=== PATIENT | female | born 1985 | race Two or more races ===

== ENCOUNTER 2023-08-13 17:20 | Emergency (ER) | payer MEDICARE, MEDICAID ==
[~2023-08-13] VITALS: Ht 154.9 cm; Wt 110.5 kg
[2023-08-13 17:57] VITALS: BP 153/93; TEMP 98.7
[2023-08-13] MEDS ORDERED: IBUPROFEN 800 MG TAB PO ONE (19:30)
[2023-08-13 20:33] LABS: Eosinophils # (auto) 0.1 10 ^3/uL (0-0.8); Eosinophils % (auto) 1.4 % (0.0-7.0); Mean Corpuscular Hemoglobin 23.1 pg (28.0-32.0)
[2023-08-13 20:34] LABS: Basophils # (auto) 0.1 10 ^3/uL (0-0.2); Basophils % (auto) 0.7 % (0.0-2.0); Hematocrit 35.1 % (36.0-46.0); Lymphocytes # (auto) 2.8 10 ^3/uL (0.4-5.4); Lymphocytes % (auto) 33.4 % (10.0-50.0); Mean Corpuscular Hgb Conc. 31.3 g/dL (32.0-36.0); Mean Corpuscular Volume 73.9 fL (80.0-100.0); Monocytes # (auto) 0.6 10 ^3/uL (0-1.3); Monocytes % (auto) 7.3 % (0.0-12.0); Neutrophils # (auto) 4.8 10 ^3/uL (1.6-8.6); Neutrophils % (auto) 57.2 % (37.0-80.0); Nucleated Red Blood Cells % 0.1 %; Red Blood Cells 4.75 10^6/uL (4.0-5.20); Red Cell Distribution Width 19.1 % (11.8-14.3); White Blood Cell 8.4 10^3/uL (4.4-10.8)
[2023-08-13 20:49] LABS: Uric Acid 5.6 mg/dL (3.1-7.8)
[2023-08-13 20:54] LABS: CRP High Sensitivity 1.92 mg/dL (<1.0)
[2023-08-13 20:56] LABS: Anion Gap 7 (5-15); BUN/Creatinine Ratio 12.7 (10.0-20.0); Blood Urea Nitrogen 10 mg/dL (9-23); Calcium 9.6 mg/dL (8.5-10.1); Carbon Dioxide 27 mmol/L (20-30); Chloride 103 mmol/L (98-107); Glucose 95 mg/dL (74-106); Potassium 3.9 mmol/L (3.5-5.1); Sodium 137 mmol/L (136-145)
[2023-08-13 21:00] VITALS: PULSE 90; RESP 20; O2SAT 97
[2023-08-13 21:01] LABS: Erythrocyte Sedimentation Rate 30 mm/hr (0-20)
[2023-08-13] MEDS ORDERED: DICL1GEL73 TD (21:14)
[2023-08-13] MEDS ORDERED: IBUP-1456 PO (21:14)
== END 2023-08-13 21:18 | disposition home or self-care (01) ==
LOC: ER 17:20
DX: M25.462 Effusion, left knee (principal)
CPT/HCPCS: 36415; 73562; 80048; 84550; 85025; 85652; 86141

== ENCOUNTER 2024-03-25 16:58 | Emergency (ER) | payer MEDICARE, MEDICAID ==
[~2024-03-25] VITALS: Ht 154.9 cm; Wt 111.2 kg
[~2024-03-25 16:58] MED LIST: DICL1GEL73 TD; IBUP-1456 PO
[2024-03-25 18:48] LABS: Urine Bacteria FEW /hpf (None Seen); Urine Blood Negative /uL (Negative); Urine Clarity Turbid (Clear); Urine Color Yellow (Yellow); Urine Mucus FEW (None Seen); Urine Protein, UAD 1+ (Negative); Urine Specific Gravity 1.031 (1.001-1.035); Urine Urobilinogen Normal (Negative); Urine WBC 3 /hpf (0 - 5)
[2024-03-25] MEDS ORDERED: IBUP-1455 PO (20:49)
[2024-03-25 21:30] VITALS: BP 147/80; PULSE 92; RESP 18; TEMP 98.2; O2SAT 95
== END 2024-03-25 21:33 | disposition home or self-care (01) ==
LOC: ER 17:00
DX: R10.31 Right lower quadrant pain (principal); R16.0 Hepatomegaly, not elsewhere classified
CPT/HCPCS: 74176; 81001

== ENCOUNTER 2024-05-10 15:50 | Emergency (ER) | payer MEDICARE, MEDICAID ==
[~2024-05-10] VITALS: Ht 154.9 cm; Wt 110.0 kg
[~2024-05-10 15:50] MED LIST changes: +IBUP-1455 PO
[2024-05-10 16:19] LABS: Basophils # (auto) 0.1 10 ^3/uL (0-0.2); Eosinophils # (auto) 0.1 10 ^3/uL (0-0.8); Eosinophils % (auto) 0.8 % (0.0-7.0); Hemoglobin 10.5 g/dL (12.2-16.2); Monocytes # (auto) 0.6 10 ^3/uL (0-1.3)
[2024-05-10 16:20] LABS: Basophils % (auto) 1.2 % (0.0-2.0); Hematocrit 33.6 % (36.0-46.0); Lymphocytes # (auto) 2.5 10 ^3/uL (0.4-5.4); Lymphocytes % (auto) 34.5 % (10.0-50.0); Mean Corpuscular Hemoglobin 22.7 pg (28.0-32.0); Mean Corpuscular Hgb Conc. 31.4 g/dL (32.0-36.0); Mean Corpuscular Volume 72.4 fL (80.0-100.0); Monocytes % (auto) 8.2 % (0.0-12.0); Neutrophils % (auto) 55.3 % (37.0-80.0); Red Blood Cells 4.64 10^6/uL (4.0-5.20); Red Cell Distribution Width 19.3 % (11.8-14.3); White Blood Cell 7.2 10^3/uL (4.4-10.8)
[2024-05-10 16:43] LABS: Alkaline Phosphatase 79 U/L (46-116); Anion Gap 9 (5-15); Aspartate Aminotransferase < 8 U/L (13-40); BUN/Creatinine Ratio 10.9 (10.0-20.0); Blood Urea Nitrogen 10 mg/dL (9-23); Calcium 9.2 mg/dL (8.7-10.4); Carbon Dioxide 24 mmol/L (20-30); Chloride 108 mmol/L (98-107); Glucose 92 mg/dL (74-106); Potassium 3.9 mmol/L (3.5-5.1); Sodium 141 mmol/L (136-145)
[2024-05-10 16:44] LABS: Albumin 4.1 g/dL (3.2-4.8); Bilirubin, Total 0.2 mg/dL (0.2-1.0)
[2024-05-10 17:01] LABS: Alanine Aminotransferase < 9 U/L (7-40)
[2024-05-10 17:35] VITALS: BP 121/85; TEMP 98.7
[2024-05-10 17:37] VITALS: PULSE 69; RESP 22; O2SAT 97
[2024-05-10] MEDS ORDERED: AUG875T PO (18:33)
[2024-05-10] MEDS ORDERED: PRED20TA2 PO (18:33)
== END 2024-05-10 18:48 | disposition home or self-care (01) ==
LOC: ER 15:50
DX: J18.9 Pneumonia, unspecified organism (principal)
CPT/HCPCS: 36415; 71045; 80053; 84484; 85025; 93005

== ENCOUNTER 2024-10-29 17:36 | Emergency (ER) | payer MEDICARE, MEDICAID ==
[~2024-10-29] VITALS: Ht 154.9 cm; Wt 114.8 kg
[~2024-10-29 17:36] MED LIST changes: +AUG875T PO; +PRED20TA2 PO
--- NOTE | 2024-10-29 19:02 | ED.PDOC ---
HPI Comments Patient presents to the ED with a left thumb laceration. 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 The patient states that she applied a band aid to the wound, and bleeding appears controlled at this time.Denies numbness and weakness. Chief Complaint: Laceration Time Seen by MD: 18:35 Primary Care Provider: NONE Reviewed Notes: Nurses Notes, Medications, Allergies Allergies: Coded Allergies: NO KNOWN ALLERGIES (Unverified , 08/13/23) Home Meds Active Scripts Ibuprofen (Ibuprofen) 800 Mg Tab, 1 TAB PO TID PRN for 5 Days, #15 TAB Prov:LATASHA GUZMAN [employer] ADMIN[employer] 10/29/24 Prednisone (Prednisone) 20 Mg Tab, 20 MG PO DAILY for 5 Days, #5 MG Prov:LÓPEZ LEDBETTER [employer] ADMIN[employer] 05/10/24 Amoxicillin & Pot Clavulanate (AUGMENTIN TABLET) 875 Mg Tb, 875 MG PO BID for 7 Days, #14 TAB Prov:LÓPEZ LEDBETTER [facility] 05/10/24 Ibuprofen Micronized (Ibuprofen) 800 Mg Tab, 800 MG PO Q8HP PRN, #20 TAB Prov:GABI MADERA PAC 03/25/24 Ibuprofen (Ibuprofen) 800 Mg Tab, 1 TAB PO TID PRN for 30 Days, #90 TAB 1 Refill Prov:GUILLE SARAH [facility] 08/13/23 Diclofenac Sodium (Topical) (Diclofenac Sodium) 1 % Gel, 1 % TD QID PRN for 30 Days, #1 GEL Prov:GUILLE SARAH [facility] 08/13/23 Information Source: Patient Mode of Arrival: Ambulatory Complexity: Simple Laceration Length (cm): 1 Past Medical History PAST MEDICAL HISTORY: Gallstones 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 Family History Family History: Reviewed,noncontributory to illness, No family hx of Cancer, No family hx of DM, No family hx of Heart nohemi, No family hx of HTN, No family hx ofKidney nohemi, No family hx of Liver nohemi, No family hx of Lung nohemi, No family hx of Stroke Social History Smoker: Non-Smoker Alcohol: Denies ETOH Use Drugs: Denies Drug Use Lives In: Home Constitutional: denies: chills, diaphoresis, fatigue, fever, malaise, sweats, weakness, others EENTM: denies: blurred vision, double vision, ear bleeding, ear discharge, ear drainage, ear pain, ear ringing, eye pain, eye redness, hearing loss, mouth pain, mouth swelling, nasal discharge, nose bleeding, nose congestion, nose pain, photophobia, tearing, throat pain, throat swelling, voice changes, others Respiratory: denies: cough, hemoptysis, orthopnea, SOB at rest, shortness of breath, SOB with excertion, stridor, wheezing, others Cardiovascular: denies: chest pain, dizzy spells, diaphoresis, Dyspnea on exertion, edema, irregular heart beat, left arm pain, lightheadedness, palpitations, PND, syncope, others Gastrointestinal: denies: abdomen distended, abdominal pain, blood streaked bowels, constipated, diarrhea, dysphagia, difficulty swallowing, hematemesis, melena, nausea, poor appetite, poor fluid intake, rectal bleeding, rectal pain, vomiting, others Genitourinary: denies: abnormal vagina bleeding, burning, dyspareunia, dysuria, flank pain, frequency, hematuria, incontinence, pain, , vagina discharge, urgency, others Neurological: denies: dizziness, fainting, headache, left sided numbness, left sided weakness, numbness, paresthesia, pre-existing deficit, right sided numbne ss, right sided weakness, seizure, speech problems, tingling, tremors, weakness, others Musculoskeletal: denies: back pain, gout, joint pain, joint swelling, muscle pain, muscle stiffness, neck pain, others Integumetry: reports: laceration (left thumb); denies: bruises, change in color, change in hair/nails, dryness, lesions, lumps, rash, wounds, others Allergic/Immunocompromised: denies: Difficulty Healing, Frequent Infections, Hives, Itching, others Hematologic/Lymphatic: denies: anemia, blood clots, easy bleeding, easy bru ising, swollen glands, others Endocrine: denies: excessive hunger, excessive sweating, excessive thirst, e xcessive urination, flushing, intolerance to cold, intolerance to heat, unexplained weight gain, unexplained weight loss, others Psychiatric: denies: anxiety, bipolar disorder, depression, hopeless, panic disorder, schizophrenia, sleepless, suicidal, others Physical Exam General Appearance: No Apparent Distress, Normal HEENT: Pharynx Normal Neck: Full Range of Motion, Non-Tender Respiratory: Lungs Clear, No Respiratory Distress, Normal Breath Sounds Cardiovascular: No Murmur, Normal Peripheral Pulses, Regular Rate/Rhythm Breast Exam: Deferred Gastrointestinal: Non Tender, Soft Genitalia: Deferred Pelvic: Deferred Rectal: Deferred Extremities: Normal capillary refill, Normal inspection, Normal range of motion, Non-tender, No pedal edema Musculoskeletal : Apperance: Normal Neurologic: Alert, noc engineer II-XII nml as Tested, No Motor Deficits, Normal Affect, Normal Mood, No Sensory Deficits Cerebellar Function: Normal Reflexes: Normal Skin: Dry, Lacerations (Superficial laceration to left thumb, bleeding control led, csm intact ), Normal Color, Warm Lymphatic: No Adenopathy Was a procedure done? Was a procedure done?: Yes Sedation Sedation?: No Laceration Repair : Location Left Thumb Length 1.5 cm Anesthetic: Nothing Laceration Repair Prep: Saline, Betadine Laceration Repair Wound Comple: subcut tissue repair Laceration Repair: Dermabond Informed consent obtained: Yes Risks, benefits, and alternati: Yes Notes Patient tolerated well with no blood loss Differential diagnosis Generic Laceration: Fracture, Retained Foriegn Body, Neurovascular Injury, Tendon Injury, Laceration, Avulsion, Amputation X-Ray, Labs, Meds, VS Vital Signs Date Time Temp Pulse Resp B/P (MAP) Pulse Ox O2 Delivery O2 Flow Rate FiO2 10/29/24 19:41 73 19 98 Room Air 10/29/24 19:41 98.6 73 19 140/82 (101) 98 98.6 10/29/24 17:58 98.9 84 16 163/54 (90) 97 Current Medications Medications (Trade) Dose Ordered Sig/Jenna Route Start Time Stop Time Status Last Admin Acetaminophen/ Hydrocodone Bitart ([place] 5/325MG Tab) 1 tab ONCE ONCE PO 10/29/24 20:30 10/29/24 20:31 DC 10/29/24 20:31 X-Ray, Labs, Meds, VS Comment Laceration superficial closed with Dermabond and Steri-Strips. Dermabond aftercare discussed. Advised patient to follow up with her PCP as needed. Motrin 800 sent for pain and swelling. ER return precautions given patient agrees with discharge plan of care. Time of 1ST Reevaluation: 20:29 Reevaluation 1ST: Improved Patient Education/Counseling: Diagnosis, Treatment, Prognosis, Need For Follow Up Family Education/Counseling: No Family Present Departure 1 Departure Time of Disposition: 20:29 Impression: Primary Impression: Laceration of thumb without foreign body without damage to nail Qualified Codes: S61.012A - Laceration without foreign body of left thumb without damage to nail, initial encounter Disposition: HOME / SELF CARE / HOMELESS Condition: Stable e-Prescriptions Ibuprofen (Ibuprofen) 800 Mg Tab 1 TAB PO TID PRN for 5 Days, #15 TAB Prov: LATASHA GUZMAN 10/29/24 Discharged With: Self Critical Care Note Critical Care Time?: No Stability Stability form required: LATASHA Hernandez Oct 29, 2024 19:02
[2024-10-29] MEDS ORDERED: LIDOCAINE 1% HCL (LOCAL ANESTH.) INJ 20ML MDV ID ONE (19:15)
[2024-10-29 19:41] VITALS: BP 140/82; PULSE 73; RESP 19; TEMP 98.6; O2SAT 98
[2024-10-29] MEDS ORDERED: IBUP-1456 PO (20:31)
[2024-10-29] MEDS: HYDROcodone-ACET 5/325MG TAB PO ONE (20:31)
--- NOTE | 2024-10-31 13:45 | ECG ---
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
== END 2024-10-29 21:13 | disposition home or self-care (01) ==
LOC: ER 17:36
DX: S61.012A Laceration without foreign body of left thumb without damage to nail, initial encounter (principal); R07.9 Chest pain, unspecified; R94.31 Abnormal electrocardiogram [ECG] [EKG]; Z79.52 Long term (current) use of systemic steroids; W26.8XXA Contact with other sharp object(s), not elsewhere classified, initial encounter; Y93.89 Activity, other specified; Y92.89 Other specified places as the place of occurrence of the external cause; Y99.8 Other external cause status
CPT/HCPCS: 12001; 93005; J2003

== ENCOUNTER 2025-05-03 16:31 | Emergency (ER) | payer MEDICARE, MEDICAID ==
[~2025-05-03] VITALS: Ht 154.9 cm; Wt 100.0 kg
[2025-05-03] MEDS: ALBUTEROL SULF 2.5 MG/0.5ML(0.5%) NEB SOLN NEB ONE (17:10)
[2025-05-03] MEDS: IPRATROPIUM BROM 0.5 MG/2.5ML INH SOL NEB ONE (17:10)
--- NOTE | 2025-05-03 17:10 | ED.PDOC ---
History of Present Illness HPI Comments 40 y/o morbidly obese F, with a history of asthma and gallstones, presents with c/c nonradiating, sternal chest pressure and shortness of breath. Atraumatic, unprovoked, and gradual onset of symptoms, last night, that has been, progressively, worsening since then. No known sick contact or travel. Denies any palpations, cough, congestion, nausea, vomiting, fever, chills, or further associated symptoms. Vital signs were stable at arrival. Chief Complaint: Chest Pain Time Seen by MD: 16:50 Primary Care Provider: NONE Reviewed Notes: Nurses Notes Allergies: Coded Allergies: NO KNOWN ALLERGIES (Unverified , 08/13/23) Home Meds Active Scripts Prednisone (Prednisone) 20 Mg Tab, 20 MG PO DAILY for 5 Days, #5 MG Prov:LÓPEZ LEDBETTER [facility] 05/10/24 Amoxicillin & Pot Clavulanate (AUGMENTIN TABLET) 875 Mg Tb, 875 MG PO BID for 7 Days, #14 TAB Prov:LÓPEZ LEDBETTER [facility] 05/10/24 Ibuprofen Micronized (Ibuprofen) 800 Mg Tab, 800 MG PO Q8HP PRN, #20 TAB Prov:GABI MADERA PAC 03/25/24 Ibuprofen (Ibuprofen) 800 Mg Tab, 1 TAB PO TID PRN for 30 Days, #90 TAB 1 Refill Prov:GUILLE SARAH [facility] 08/13/23 Diclofenac Sodium (Topical) (Diclofenac Sodium) 1 % Gel, 1 % TD QID PRN for 30 Days, #1 GEL Prov:GUILLE SARAH [facility] 08/13/23 Information Source: Patient Mode of Arrival: Ambulatory Past Medical History PAST MEDICAL HISTORY: Asthma, Gallstones 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 Was a procedure done?: No Differential Dx Considerations may include: WI, PE, ACS, URI, PNA, anxiety, angina, asthma exacerbation, cholelithiasis, cholecystitis, among others. X-Ray, Labs, Meds, VS Vital Signs Date Time Temp Pulse Resp B/P (MAP) Pulse Ox O2 Delivery O2 Flow Rate FiO2 05/03/25 19:42 17 98 Room Air* 0 21 05/03/25 19:40 96 17 150/81 (104) 98 05/03/25 19:40 150/81 05/03/25 17:37 88 05/03/25 17:37 98.2 88 18 146/86 (106) 95 98.2 05/03/25 17:35 146/86 05/03/25 17:10 19 100 Room Air* 0 21 05/03/25 16:38 81 05/03/25 16:34 98.4 81 18 147/94 (111) 99 98.4 Lab Test 05/03/25 18:02 05/03/25 17:02 Range/Units Troponin I High Sensitivity < 3 L < 3 L </=34 ng/L White Blood Count 7.6 4.4-10.8 10^3/uL Red Blood Count 4.97 4.0-5.20 10^6/uL Hemoglobin 11.1 L 12.2-16.2 g/dL Hematocrit 35.4 L 36.0-46.0 % Mean Corpuscular Volume 71.3 L 80.0-100.0 fL Mean Corpuscular Hemoglobin 22.3 L 28.0-32.0 pg Mean Corpuscular Hemoglobin Concent 31.4 L 32.0-36.0 g/dL Red Cell Distribution Width 19.6 H 11.8-14.3 % Platelet Count 398 140-450 10^3/uL Mean Platelet Volume 7.4 6.9-10.8 fL Neutrophils (%) (Auto) 53.5 37.0-80.0 % Lymphocytes (%) (Auto) 37.0 10.0-50.0 % Monocytes (%) (Auto) 8.5 0.0-12.0 % Eosinophils (%) (Auto) 0.4 0.0-7.0 % Basophils (%) (Auto) 0.6 0.0-2.0 % Neutrophils # (Auto) 4.0 1.6-8.6 10 ^3/uL Lymphocytes # (Auto) 2.8 0.4-5.4 10 ^3/uL Monocytes # (Auto) 0.6 0-1.3 10 ^3/uL Eosinophils # (Auto) 0 0-0.8 10 ^3/uL Basophils # (Auto) 0 0-0.2 10 ^3/uL Nucleated Red Blood Cells 0.0 % Sodium Level 138 136-145 mmol/L Potassium Level 4.2 3.5-5.1 mmol/L Chloride Level 104 98-107 mmol/L Carbon Dioxide Level 26 20-31 mmol/L Anion Gap 8 5-15 Blood Urea Nitrogen 11 9-23 mg/dL Creatinine 0.79 0.550-1.02 mg/dL Glomerular Filtration Rate Calc 98 >90 mL/min BUN/Creatinine Ratio 13.9 10.0-20.0 Serum Glucose 80 74-106 mg/dL Calcium Level 8.7 8.7-10.4 mg/dL Total Bilirubin 0.2 0.2-1.0 mg/dL Aspartate Amino Transferase (AST) 13 13-40 U/L Alanine Aminotransferase (ALT) < 9 7-40 U/L Alkaline Phosphatase 72 46-116 U/L Total Protein 7.0 5.7-8.2 g/dL Albumin 4.3 3.2-4.8 g/dL Lipase 28 12-53 U/L Current Medications Medications (Trade) Dose Ordered Sig/Jenna Route Start Time Stop Time Status Last Admin Albuterol (Ventolin Medneb) 5 mg ONCE ONCE NEB 05/03/25 17:00 05/03/25 17:01 DC 05/03/25 17:10 Ipratropium Handley (Atrovent Medneb) 0.5 mg ONCE ONCE NEB 05/03/25 17:00 05/03/25 17:01 DC 05/03/25 17:10 Dexamethasone Sodium Phosphate (Decadron Injection) 10 mg ONCE ONCE IM 05/03/25 17:00 05/03/25 17:01 DC 05/03/25 17:35 Nitroglycerin (Ntrostat Sublingual) 0.4 mg ONCE ONCE SL 05/03/25 17:00 05/03/25 17:01 DC 05/03/25 17:35 Time of 1ST Reevaluation: 17:20 Reevaluation 1ST: Unchanged Patient Education/Counseling: Diagnosis, Treatment, Need For Follow Up Family Education/Counseling: No Family Present SEPSIS Sepsis Screen Physician Orders Chest Portable (05/03/25 16:51) Vital Signs Date Time Temp Pulse Resp B/P (MAP) Pulse Ox O2 Delivery O2 Flow Rate FiO2 05/03/25 19:42 17 98 Room Air* 0 21 05/03/25 19:40 96 17 150/81 (104) 98 05/03/25 19:40 150/81 05/03/25 17:37 88 05/03/25 17:37 98.2 88 18 146/86 (106) 95 98.2 05/03/25 17:35 146/86 05/03/25 17:10 19 100 Room Air* 0 21 05/03/25 16:38 81 05/03/25 16:34 98.4 81 18 147/94 (111) 99 98.4 Laboratory Tests Test 05/03/25 17:02 White Blood Count 7.6 10^3/uL (4.4-10.8) Medications Medications Dose Ordered Sig/Jenna Route Start Time Stop Time Status Last Admin Dose Admin Albuterol 5 mg ONCE ONCE NEB 05/03/25 17:00 05/03/25 17:01 DC 05/03/25 17:10 Dexamethasone Sodium Phosphate 10 mg ONCE ONCE IM 05/03/25 17:00 05/03/25 17:01 DC 05/03/25 17:35 Ipratropium Handley 0.5 mg ONCE ONCE NEB 05/03/25 17:00 05/03/25 17:01 DC 05/03/25 17:10 Nitroglycerin 0.4 mg ONCE ONCE SL 05/03/25 17:00 05/03/25 17:01 DC 05/03/25 17:35 Critical Care Note Critical Care Time?: No Stability Stability form required: No Heart Score Heart Score: Heart Score Response (Comments) Value History Slightly Suspicious 0 EKG Normal 0 Age <45 0 Risk Factors 1 or 2 risk factors 1 Troponin Normal limit 0 Total 1 I personally scribed for GABI MADERA PAC ([email or web address]) on 05/03/25 at 17:10. Electronically submitted by Vern Nath ([email or web address]). GABI MADERA PAC May 03, 2025 17:10
[2025-05-03] MEDS: IPRATROPIUM BROM 0.5 MG/2.5ML INH SOL ONE (17:11)
--- NOTE | 2025-05-03 17:11 | ED.PDOC ---
HPI Comments This is a 40 year old female presenting to the ED with chief complaint of chest pain. Patient reports that she has been experiencing substernal, crushing chest pain with associated SOB for the past 4 hours. Patient relays that she has history of asthma. Patient denies any N/V, abdominal pain, hemoptysis, headache, dizziness, numbness, weakness, or tingling. Vital signs were stable at arrival. Chief Complaint: Chest Pain Time Seen by MD: 17:10 Primary Care Provider: NONE Reviewed Notes: Nurses Notes, Medications, Allergies Allergies: Coded Allergies: NO KNOWN ALLERGIES (Unverified , 08/13/23) Home Meds Active Scripts Prednisone (Prednisone) 20 Mg Tab, 20 MG PO DAILY for 5 Days, #5 MG Prov:LÓPEZ LEDBETTER MERINGUER 05/10/24 Amoxicillin & Pot Clavulanate (AUGMENTIN TABLET) 875 Mg Tb, 875 MG PO BID for 7 Days, #14 TAB Prov:LÓPEZ LEDBETTER [facility] 05/10/24 Ibuprofen Micronized (Ibuprofen) 800 Mg Tab, 800 MG PO Q8HP PRN, #20 TAB Prov:GABI MADERA PAC 03/25/24 Ibuprofen (Ibuprofen) 800 Mg Tab, 1 TAB PO TID PRN for 30 Days, #90 TAB 1 Refill Prov:GUILLE SARAH [facility] 08/13/23 Diclofenac Sodium (Topical) (Diclofenac Sodium) 1 % Gel, 1 % TD QID PRN for 30 Days, #1 GEL Prov:GUILLE SARAH [facility] 08/13/23 Information Source: Patient Mode of Arrival: Ambulatory Severity: Moderate Timing: Hours Duration: Since onset Prehospital treatment: None Location: Substernal Radiation: No Radiation Quality: Crushing Onset: At Rest Cardiac Risk Factors: None PE Risk Factors: None History of: None Associated Signs and Symptoms: SOB Past Medical History PAST MEDICAL HISTORY: Asthma, Gallstones Surgical History: 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: No 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 Family History Family History: Reviewed,noncontributory to illness, No family hx of Cancer, No family hx of DM, No family hx of Heart nohemi, No family hx of HTN, No family hx ofKidney nohemi, No family hx of Liver nohemi, No family hx of Lung nohemi, No family hx of Stroke Social History Smoker: Non-Smoker Alcohol: Denies ETOH Use Drugs: Denies Drug Use Lives In: Home Constitutional: denies: chills, diaphoresis, fatigue, fever, malaise, sweats, weakness, others EENTM: denies: blurred vision, double vision, ear bleeding, ear discharge, ear drainage, ear pain, ear ringing, eye pain, eye redness, hearing loss, mouth pain, mouth swelling, nasal discharge, nose bleeding, nose congestion, nose pain, photophobia, tearing, throat pain, throat swelling, voice changes, others Respiratory: reports: shortness of breath; denies: cough, hemoptysis, orthopnea, SOB at rest, SOB with excertion, stridor, wheezing, others Cardiovascular: reports: chest pain; denies: dizzy spells, diaphoresis, Dyspnea on exertion, edema, irregular heart beat, left arm pain, lightheadedness, palpitations, PND, syncope, others Gastrointestinal: denies: abdomen distended, abdominal pain, blood streaked bowels, constipated, diarrhea, dysphagia, difficulty swallowing, hematemesis, melena, nausea, poor appetite, poor fluid intake, rectal bleeding, rectal pain, vomiting, others Genitourinary: denies: abnormal vagina bleeding, burning, dyspareunia, dysuria, flank pain, frequency, hematuria, incontinence, pain, , vagina discharge, urgency, others Neurological: denies: dizziness, fainting, headache, left sided numbness, left sided weakness, numbness, paresthesia, pre-existing deficit, right sided numbness, right sided weakness, seizure, speech problems, tingling, tremors, weakness, others Musculoskeletal: denies: back pain, gout, joint pain, joint swelling, muscle pain, muscle stiffness, neck pain, others Integumetry: denies: bruises, change in color, change in hair/nails, dryness, laceration, lesions, lumps, rash, wounds, others Allergic/Immunocompromised: denies: Difficulty Healing, Frequent Infections, Hives, Itching, others Hematologic/Lymphatic: denies: anemia, blood clots, easy bleeding, easy bruising, swollen glands, others Endocrine: denies: excessive hunger, excessive sweating, excessive thirst, excessive urination, flushing, intolerance to cold, intolerance to heat, un explained weight gain, unexplained weight loss, others Psychiatric: denies: anxiety, bipolar disorder, depression, hopeless, panic disorder, schizophrenia, sleepless, suicidal, others All Other Systems: Reviewed and Negative Physical Exam General Appearance: Moderate Distress ([id number] distress due to chest pain and shortness a breath concerns.), Normal HEENT: Normal ENT Inspection, Pharynx Normal, TMs Normal Neck: Full Range of Motion, Non-Tender, Normal, Normal Inspection Respiratory: Chest Non-Tender, Lungs Clear, No Accessory Muscle Use, No Respiratory Distress, Normal Breath Sounds, Other (Cardiac evaluation was unremarkable.) Cardiovascular: No Edema, No JVD, No Murmur, No Gallop, Normal Peripheral Pulses, Regular Rate/Rhythm Breast Exam: Deferred Gastrointestinal: No Organomegaly, Non Tender, No Pulsatile Mass, Normal Bowel Sounds, Soft Genitalia: Deferred Pelvic: Deferred Rectal: Deferred Extremities: No calf tenderness, Normal capillary refill, Normal inspection, Normal range of motion, Non-tender, No pedal edema Neurologic: Alert, No Motor Deficits, Normal Affect, Normal Mood, No Sensory Deficits Cerebellar Function: NOT DONE Reflexes: NOT DONE Skin: Dry, Normal Color, Warm Lymphatic: No Adenopathy Was a procedure done? Was a procedure done?: No CP Differential Dx Differential Diagnosis: A-fib, Angina, Anxiety / Panic Attack, Atrial Dysrhythmia, AV Block 1st Degree, [place] Differential Diagnosis: CHF Differential Diagnosis: Angina, Chest Wall Pain X-Ray, Labs, Meds, VS Vital Signs Date Time Temp Pulse Resp B/P (MAP) Pulse Ox O2 Delivery O2 Flow Rate FiO2 05/03/25 19:42 17 98 Room Air* 0 21 05/03/25 19:40 96 17 150/81 (104) 98 05/03/25 19:40 150/81 05/03/25 17:37 88 05/03/25 17:37 98.2 88 18 146/86 (106) 95 98.2 05/03/25 17:35 146/86 05/03/25 17:10 19 100 Room Air* 0 21 05/03/25 16:38 81 05/03/25 16:34 98.4 81 18 147/94 (111) 99 98.4 Lab Test 05/03/25 18:02 05/03/25 17:02 Range/Units Troponin I High Sensitivity < 3 L < 3 L </=34 ng/L White Blood Count 7.6 4.4-10.8 10^3/uL Red Blood Count 4.97 4.0-5.20 10^6/uL Hemoglobin 11.1 L 12.2-16.2 g/dL Hematocrit 35.4 L 36.0-46.0 % Mean Corpuscular Volume 71.3 L 80.0-100.0 fL Mean Corpuscular Hemoglobin 22.3 L 28.0-32.0 pg Mean Corpuscular Hemoglobin Concent 31.4 L 32.0-36.0 g/dL Red Cell Distribution Width 19.6 H 11.8-14.3 % Platelet Count 398 140-450 10^3/uL Mean Platelet Volume 7.4 6.9-10.8 fL Neutrophils (%) (Auto) 53.5 37.0-80.0 % Lymphocytes (%) (Auto) 37.0 10.0-50.0 % Monocytes (%) (Auto) 8.5 0.0-12.0 % Eosinophils (%) (Auto) 0.4 0.0-7.0 % Basophils (%) (Auto) 0.6 0.0-2.0 % Neutrophils # (Auto) 4.0 1.6-8.6 10 ^3/uL Lymphocytes # (Auto) 2.8 0.4-5.4 10 ^3/uL Monocytes # (Auto) 0.6 0-1.3 10 ^3/uL Eosinophils # (Auto) 0 0-0.8 10 ^3/uL Basophils # (Auto) 0 0-0.2 10 ^3/uL Nucleated Red Blood Cells 0.0 % Sodium Level 138 136-145 mmol/L Potassium Level 4.2 3.5-5.1 mmol/L Chloride Level 104 98-107 mmol/L Carbon Dioxide Level 26 20-31 mmol/L Anion Gap 8 5-15 Blood Urea Nitrogen 11 9-23 mg/dL Creatinine 0.79 0.550-1.02 mg/dL Glomerular Filtration Rate Calc 98 >90 mL/min BUN/Creatinine Ratio 13.9 10.0-20.0 Serum Glucose 80 74-106 mg/dL Calcium Level 8.7 8.7-10.4 mg/dL Total Bilirubin 0.2 0.2-1.0 mg/dL Aspartate Amino Transferase (AST) 13 13-40 U/L Alanine Aminotransferase (ALT) < 9 7-40 U/L Alkaline Phosphatase 72 46-116 U/L Total Protein 7.0 5.7-8.2 g/dL Albumin 4.3 3.2-4.8 g/dL Lipase 28 12-53 U/L Current Medications Medications (Trade) Dose Ordered Sig/Jenna Route Start Time Stop Time Status Last Admin Albuterol (Ventolin Medneb) 5 mg ONCE ONCE NEB 05/03/25 17:00 05/03/25 17:01 DC 05/03/25 17:10 Ipratropium [place] (Atrovent Medneb) 0.5 mg ONCE ONCE NEB 05/03/25 17:00 05/03/25 17:01 DC 05/03/25 17:10 Dexamethasone Sodium Phosphate (Decadron Injection) 10 mg ONCE ONCE IM 05/03/25 17:00 05/03/25 17:01 DC 05/03/25 17:35 Nitroglycerin (Ntrostat Sublingual) 0.4 mg ONCE ONCE SL 05/03/25 17:00 05/03/25 17:01 DC 05/03/25 17:35 X-Ray, Labs, Meds, VS Comment All studies performed the ED were evaluated by me personally. Serum studies were unremarkable for any systemic concerns including unremarkable cardiac markers. EKG revealed a sinus rhythm with a rate of 81. Borderline T-wave abnormalities was noted in anterior leads as well as baseline wander in leads two, three and AVF. ND interval 142 and QT interval of 352. Chest x-ray was unremarkable for any acute intracranial process or concern. Patient had moderate to good relief of symptoms status post medication dispensed. Advised patient to utilize medication as needed and if necessary, follow up with the primary care provider for re-evaluation in the next few days as well as possible cardiac referral. Time of 1ST Reevaluation: 19:59 Reevaluation 1ST: Improved Consultation: PCP, Cardiology Patient Education/Counseling: Diagnosis, Treatment Family Education/Counseling: Diagnosis, Treatment, No Family Present SEPSIS Sepsis Screen Recent Procedure: No On Antibiotic Therapy: No Respiratory Rate >20: No Heart Rate >90: No Temp<36 C (96.8 F) or >38.3 C: No SBP <90 or MAP <65 mmHG: No New Acute Mental Status Change: No Is the patient on CPAP, BIPAP,: No Physician Orders Chest Portable (05/03/25 16:51) Vital Signs Date Time Temp Pulse Resp B/P (MAP) Pulse Ox O2 Delivery O2 Flow Rate FiO2 05/03/25 19:42 17 98 Room Air* 0 21 05/03/25 19:40 96 17 150/81 (104) 98 05/03/25 19:40 150/81 05/03/25 17:37 88 05/03/25 17:37 98.2 88 18 146/86 (106) 95 98.2 05/03/25 17:35 146/86 05/03/25 17:10 19 100 Room Air* 0 21 05/03/25 16:38 81 05/03/25 16:34 98.4 81 18 147/94 (111) 99 98.4 Laboratory Tests Test 05/03/25 17:02 White Blood Count 7.6 10^3/uL (4.4-10.8) Medications Medications Dose Ordered Sig/Jenna Route Start Time Stop Time Status Last Admin Dose Admin Albuterol 5 mg ONCE ONCE NEB 05/03/25 17:00 05/03/25 17:01 DC 05/03/25 17:10 Dexamethasone Sodium Phosphate 10 mg ONCE ONCE IM 05/03/25 17:00 05/03/25 17:01 DC 05/03/25 17:35 Ipratropium [place] 0.5 mg ONCE ONCE NEB 05/03/25 17:00 05/03/25 17:01 DC 05/03/25 17:10 Nitroglycerin 0.4 mg ONCE ONCE SL 05/03/25 17:00 05/03/25 17:01 DC 05/03/25 17:35 Departure 1 Departure Time of Disposition: 19:59 Impression: Primary Impression: Chest pain Disposition: HOME / SELF CARE / HOMELESS Condition: Stable Additional Instructions: Advised patient utilize medication as needed for symptomatic relief. If symptoms continue, patient will need to follow up with the primary care provider for possible cardiac referral and evaluation. e-Prescriptions Nitroglycerin (Nitrostat) 0.4 Mg Sub 0.4 MG SL Q6HP PRN, #10 INJ Prov: GABI MADERA PAC 05/03/25 Albuterol Sulfate (Albuterol Sulfate Hfa) 108 Mcg/Act Aer 108 MCG IN Q4HP PRN, #1 AER Prov: GABI MADERA PAC 05/03/25 Discharged With: Self, Friend Critical Care Note Critical Care Time?: No Stability Stability form required: No Heart Score Heart Score: Heart Score Response (Comments) Value History Slightly Suspicious 0 EKG Repolarization Disturb 1 Age <45 0 Risk Factors 1 or 2 risk factors 1 Troponin Normal limit 0 Total 2 I personally scribed for GABI MADERA PAC ([email or web address]) on 05/03/25 at 17:11. E lectronically submitted by Guillermo Carmona ([email or web address]). GABI MADERA PAC May 03, 2025 17:11
[2025-05-03] MEDS: ALBUTEROL SULF 2.5 MG/0.5ML(0.5%) NEB SOLN ONE (17:12)
[2025-05-03 17:24] LABS: Hematocrit 35.4 % (36.0-46.0); Hemoglobin 11.1 g/dL (12.2-16.2); Mean Corpuscular Hemoglobin 22.3 pg (28.0-32.0); Mean Corpuscular Volume 71.3 fL (80.0-100.0); Nucleated Red Blood Cells % 0.0 %
--- NOTE | 2025-05-03 17:34 | DVH ---
CHEST RADIOGRAPH Indication: Shortness of breath Technique: XY CHEST PORTABLE Comparison: None FINDINGS: The cardiac silhouette is unremarkable. The lungs demonstrate no pulmonary airspace consolidation. Th e pulmonary vasculature is mildly prominent. There is no pleural effusion. There is no pneumothorax. IMPRESSION: Mild pulmonary vascular congestion.
[2025-05-03] MEDS: NITROGLYCERIN 0.4 MG SL TAB SL ONE (17:35)
[2025-05-03 17:37] VITALS: TEMP 98.2
[2025-05-03 17:42] LABS: Albumin 4.3 g/dL (3.2-4.8); Alkaline Phosphatase 72 U/L (46-116); Anion Gap 8 (5-15); BUN/Creatinine Ratio 13.9 (10.0-20.0); Blood Urea Nitrogen 11 mg/dL (9-23); Calcium 8.7 mg/dL (8.7-10.4); Carbon Dioxide 26 mmol/L (20-31); Chloride 104 mmol/L (98-107); Glucose 80 mg/dL (74-106); Lipase 28 U/L (12-53); Potassium 4.2 mmol/L (3.5-5.1); Sodium 138 mmol/L (136-145); Total Protein 7.0 g/dL (5.7-8.2)
[2025-05-03 18:02] LABS: Alanine Aminotransferase < 9 U/L (7-40); Bilirubin, Total 0.2 mg/dL (0.2-1.0)
--- NOTE | 2025-05-03 19:10 | ECG ---
[facility] Test Date: 2025-05-03 Test Time: 16:38:32 Pat Name: SHAWN RENE Department: er Room: Gender: F Treasurer: roel : 1985 Requested By: GABI MADERA Order Number: [id number] Reading MD: Measurements Intervals Draper Rate: 81 P: 30 [place]: 142 QRS: 38 QRSD: 79 T: 6 QT: 352 QTc: 409 Interpretive Statements Sinus rhythm Borderline T abnormalities, anterior leads Baseline wander in lead(s) II,III,aVF Please click the below link to view image of tracing.
[2025-05-03 19:40] VITALS: BP 150/81; PULSE 96
[2025-05-03 19:42] VITALS: RESP 17; O2SAT 98
[2025-05-03] MEDS ORDERED: ALBU108A5 IN (20:01)
[2025-05-03] MEDS ORDERED: NITR0.4S29 SL (20:01)
== END 2025-05-03 20:16 | disposition home or self-care (01) ==
LOC: ER 16:38
DX: R07.89 Other chest pain (principal); R06.02 Shortness of breath; E66.01 Morbid (severe) obesity due to excess calories; J45.909 Unspecified asthma, uncomplicated; Z98.890 Other specified postprocedural states; Z79.52 Long term (current) use of systemic steroids; Z79.899 Other long term (current) drug therapy; Z68.41 Body mass index [BMI] 40.0-44.9, adult
CPT/HCPCS: 36415; 71045; 80053; 83690; 84484; 85025; 93005; 94640; 96372; 99285; J1100